=== PATIENT | female | born 1970 | race Caucasian/White ===

== ENCOUNTER → 2016-09-16 | Day surgery (SDC) | payer OTHER ==
[~2016-09-16] MED LIST: ALPR.25; BUPIVACAINE HCL PF 0.25% 30 ML VIAL ONE; KETOROLAC TROMETHAMINE 30 MG/ML (IVP) VIAL IV PUSH ONE; LACTATED RINGER'S 1000 ML INJ 1,000 ML ONE; LOVA40TA OR; MIDAZOLAM HCL 2 MG/2 ML VIAL ONE; ONDANSETRON HCL 4 MG/2 ML VIAL IV PUSH ONE; PROPOFOL 200 MG/20 ML AMP IV ONE; SODIUM CHLORIDE 0.9% INJ 100 ML IV ONE; TRIAMCINOLONE ACETONIDE 40 MG/ML VIAL ONE; ZOLP1TAB32; ceFAZolin 2 GM PREMIX 50 ML ONE
--- NOTE | 2016-09-18 08:44 | MP ---
cc: FARHAD CORDON DP DATE OF SURGERY 09/16/2016 PREOPERATIVE DIAGNOSIS Chronic left plantar fasciitis. POSTOPERATIVE DIAGNOSIS Chronic left plantar fasciitis. PROCEDURES PERFORMED Plantar fasciotomy of Garrison micro-debridement. ESTIMATED BLOOD LOSS Less than 10 mL SPECIMEN None COMPLICATIONS None ANESTHESIA General local anesthesia infiltrated in the posterior hind foot approximately 10 cc of 0.25% Marcaine plain TOURNIQUET TIME 6 minutes at a setting of 215 mmHg PLAN OF ACTIVITY PACU then DC home once stable per same-day surgery criteria. JUSTIFICATION FOR THE PROCEDURE This is a pleasant 46-year-old female who has had chronic plantar fasciitis for months and she has been resistant to healing via means of conservative care. We devised a plan to move forward with micro-fasciotomy with Garrison debridement. The patient understood the possibility of need to move forward with a more advanced endoscopic partial plantar fasciotomy at a later date, however, wishes to try a lesser procedure first. No guarantees given or implied regarding the outcome. PROCEDURE IN DETAIL Under mild sedation, the patient was brought into the operating room, placed on the operating room table in the supine position. Following the induction of general anesthesia, local anesthesia was obtained about the left hind foot utilizing standard block fashion. The patient's left foot was then scrubbed, prepped and draped in the usual aseptic fashion. The foot was elevated, exsanguinated and the previously placed mid ankle tourniquet was inflated at 215 mmHg. The foot was examined at this time. The insertional medial plantar fascial band was marked out at its most painful point of maximum tenderness in the preop area. Faint markings of the skin describe, but they were still visible. Next, a grid pattern was made that was approximately 3-1/2 cm x 4 cm. Multiple markings with a skin marker took place approximately 5 mm apart, approximately 28 markings were made on the fat pad at the level of the insertion of the medial plantar fascia. Next, a K-wire was used. It was inserted through the epidermis and dermal junction down to the plantar fascia. This was done in all 28 holes give or take a few. At this time, a Garrison micro-debridement wand was introduced, palpated the plantar fascia and at level four advanced and deployed completing a debridement. This was done at two different levels. As soon as I felt the most superficial band of the plantar fascia, I advanced approximately 2 mm and then I deployed again completing the deep debridement of the plantar fascial band. This was performed at all approximately 28 holes utilizing the [employer] micro-debridement wand. A bandage applied. There is minimal bleeding. Upon relieving the tourniquet, there was good capillary fill time to the digits. The patient was then transferred from OR to PACU with all vital signs stable. She is partial or minimal weight bear to tolerance. She will ice and elevate. I will see the patient within 3-5 days. KARLA Ordoñez/IVONNE /2:02 PM /8:30 AM
== END | disposition home or self-care (01) ==
LOC: ESDC 12:24
PROVIDERS: ATTEND Podiatrist Foot & Ankle Surgery
DX: M72.2 Plantar fascial fibromatosis (principal)
CPT/HCPCS: 01464; 29893; J0690; J1885; J2250; J2405; J3010; J7120; J3301